=== PATIENT | male | born 1985 | race Caucasian/White ===

== ENCOUNTER 2024-02-18 10:12 | Emergency (ER) | payer OTHER ==
[~2024-02-18] VITALS: Ht 180.3 cm; Wt 93.4 kg
[2024-02-18 10:21] VITALS: BP 128/83; PULSE 71; TEMP 98.9; O2SAT 99
[2024-02-18 11:06] VITALS: RESP 16
[2024-02-18] MEDS ORDERED: CEFD300C3 PO (11:09)
== END 2024-02-18 11:16 | disposition home or self-care (01) ==
LOC: ER 10:13
DX: J02.9 Acute pharyngitis, unspecified (principal); Z88.5 Allergy status to narcotic agent
CPT/HCPCS: 99283

== ENCOUNTER 2025-07-23 15:21 | Emergency (ER) | payer SELFPAY ==
[~2025-07-23] VITALS: Ht 182.9 cm; Wt 93.8 kg
[2025-07-23 15:44] VITALS: BP 131/86; PULSE 68; RESP 18; O2SAT 99
--- NOTE | 2025-07-23 18:08 | Physician Documentation ---
History of Present Illness ~ Chief Complaint: See Chief Complaint Stated Complaint: REQUESTING COVID TEST Time Seen by MD: 16:13 Primary Medical Doctor: NONE HPI Patient presents to the ED requesting a COVID swab as he tested positive [facility]. States he has a gait chills has sore throat. Primarily, he states he wants a work note. Day of Onset: Jul 23, 2025 Medication Reconciliation Allergies: Coded Allergies: codeine (Unverified Allergy, Unknown, 07/23/25) Review of Systems All Other Systems at this time: Reviewed and Negative ROS As stated above in the HPI, otherwise all systems are reviewed and negative. Physical Exam Vital Signs: Temperature: 97.8, Source: Oral, Heart Rate: 68, Respiratory Rate: 18, BP: 131/86, Pulse Oximetry: 99, Weight: 93.800 Oxygen Flow Rate: 0 Physical Exam General: Alert, no apparent distress. Respiratory: Lungs clear, no respiratory distress. Cardiovascular: Regular rate and rhythm, no murmurs. Gastrointestinal: Soft, nontender, nondistended. Bowels sounds present. Neurologic: Oriented x4. Psychiatric: Normal mood and affect. Skin: Normal color, warm and dry. No edema, no ecchymosis. Progress Results/Orders Results/Orders Orders - ARISTIDES SKY NP Covid19 Binax Poc Result Entry (07/23/25 16:29) Vital Signs 07/23/25 15:44 Temp 97.8 Pulse 68 Resp 18 B/P (MAP) 131/86 Pulse Ox 99 O2 Flow Rate 0 Laboratory Tests Test 07/23/25 17:55 Departure Disposition: 01 HOME / SELF CARE / HOMELESS Impression: Primary Impression: COVID-19 Condition: Stable Departure Forms: Excuse form Work or School Excused From: Work Excuse beginning now through the following date: Jul 27, 2025 May Return but still avoid physical Activity from now until: Jul 27, 2025 May Return to full physical activity as of: Jul 27, 2025 Referrals: NO PRIMARY CARE PROVIDER (PCP) Education Educated: Patient Educated regarding: diagnosis Signature Scribe Signature: n Attestation: Scribed for Aristides Sky Cable Supervisor by Aristides Kirby NP . 07/23/25 18:08 ARISTIDES SKY NP Jul 23, 2025 18:07
[2025-07-23 18:46] VITALS: TEMP 97.8
== END 2025-07-23 18:49 | disposition home or self-care (01) ==
LOC: ER 15:21
DX: U07.1 COVID-19 (principal); Z88.5 Allergy status to narcotic agent; Z59.00 Homelessness unspecified
CPT/HCPCS: 36415; 87811; 99283